=== PATIENT | female | born 1975 | race Caucasian/White ===

== ENCOUNTER 2017-08-23 17:59 | Inpatient (IN) | payer MEDICARE ==
[2017-08-23] MEDS: ALBUTEROL SULFATE 0.083% NEB 2.5 MG/3 ML AMPUL NEB SCH ×2 (18:08→18:44)
--- NOTE | 2017-08-23 18:30 | RADIOLOGY REPORT (SQ) ---
EXAM DESCRIPTION: CHEST SINGLE VIEW COMPLETED DATE/TIME: 08/23/2017 6:15 pm REASON FOR STUDY: bed 17 db COMPARISON: 02/09/2013 EXAM PARAMETERS: NUMBER OF VIEWS: One view. TECHNIQUE: Single frontal radiographic view of the chest acquired. RADIATION DOSE: NA LIMITATIONS: None. FINDINGS: LUNGS AND PLEURA: No acute opacities, masses or pneumothorax. No pleural effusion. MEDIASTINUM AND HILAR STRUCTURES: Stable. HEART AND VASCULAR STRUCTURES: Stable. BONES: No acute findings. HARDWARE: None in the chest. OTHER: No other significant finding. IMPRESSION: NO ACUTE RADIOGRAPHIC FINDING IN THE CHEST. TECHNICAL DOCUMENTATION: JOB ID: [id number] [id number] 2010 [employer]- All Rights Reserved Reading location - IP/workstation name: [email or web address]
[2017-08-23] MEDS ORDERED: IPRATROPIUM/ALBUTEROL 0.5-2.5 MG/3 ML AMPUL NEB ONE (18:34)
[2017-08-23] MEDS: MAGNESIUM SULFATE/D5W 1 GM/100 ML RTUPB IV SCH ×2 (18:43→19:24)
--- NOTE | 2017-08-23 18:50 | ER Document Report ---
ED General - General Stated Complaint: DIFFICULTY BREATHING Time Seen by Provider: 08/23/17 18:22 Mode of Arrival: Ambulatory Information source: Patient Notes: 42-year-old female history of asthma who was intubated for years ago presents with complaints of difficulty breathing over the past 2 days. Patient denies any fevers or chills denies any productivity to cough, notes she is wheezing - HPI Onset: Yesterday Onset/Duration: Persistent Quality of pain: Achy Severity: Mild Pain Level: 1 Associated symptoms: Nonproductive cough, Shortness of breath Exacerbated by: Walking, Coughing Relieved by: Denies Similar symptoms previously: Yes Recently seen / treated by doctor: No - Related Data Allergies/Adverse Reactions: Penicillins Allergy (Severe, Verified 08/23/17 19:43) throat swells hydrocodone bitartrate [From Vicodin] Adverse Reaction (Intermediate, Verified 08/23/17 19:43) agitation Past Medical History - Social History Smoking Status: Current Every Day Smoker Cigarette use (# per day): Yes Chew tobacco use (# tins/day): No Smoking Education Provided: Yes Family History: Reviewed & Not Pertinent - Past Medical History Cardiac Medical History: Reports: Hx Hypertension Pulmonary Medical History: Reports: Hx Asthma, Hx COPD Musculoskeletal Medical History: Reports Hx Arthritis - Immunizations Hx Diphtheria, Pertussis, Tetanus Vaccination: Yes Hx Pneumococcal Vaccination: 02/11/13 Review of Systems - Review of Systems Notes: REVIEW OF SYSTEMS: CONSTITUTIONAL : Denies fever, chills, or sweats. Denies recent illness. EENT: Denies eye, ear, throat, or mouth pain or symptoms. Denies nasal or sinus congestion or discharge. Denies throat, tongue, or mouth swelling or difficulty swallowing. CARDIOVASCULAR: Denies chest pain. Denies palpitations or racing or irregular heart beat. Denies ankle edema. RESPIRATORY: Admits to cough shortness of breath GASTROINTESTINAL: Denies abdominal pain or distention. Denies nausea, vomiting , or diarrhea. Denies blood in vomitus, stools, or per rectum. Denies black, tarry stools. Denies constipation. GENITOURINARY: Denies difficulty urinating, painful urination, burning, frequency, blood in urine, or discharge. FEMALE GENITOURINARY: Denies vaginal bleeding, heavy or abnormal periods, irregular periods. Denies vaginal discharge or odor. MUSCULOSKELETAL: Denies back or neck pain or stiffness. Denies joint pain or swelling. SKIN: Denies rash, lesions or sores. HEMATOLOGIC : Denies easy bruising or bleeding. LYMPHATIC: Denies swollen, enlarged glands. NEUROLOGICAL: Denies confusion or altered mental status. Denies passing out or loss of consciousness. Denies dizziness or lightheadedness. Denies headache. Denies weakness or paralysis or loss of use of either side. Denies problems with gait or speech. Denies sensory loss, numbness, or tingling. Denies seizures. PSYCHIATRIC: Denies anxiety or stress. Denies depression, suicidal ideation, or homicidal ideation. ALL OTHER SYSTEMS REVIEWED AND NEGATIVE. PHYSICAL EXAMINATION: GENERAL: Well-appearing, well-nourished and in moderate respiratory distress. HEAD: Atraumatic, normocephalic. EYES: Pupils equal round and reactive to light, extraocular movements intact, conjunctiva are normal. ENT: Nares patent, oropharynx clear without exudates. Moist mucous membranes. NECK: Normal range of motion, supple without lymphadenopathy LUNGS: Inspiratory expiratory wheezing noted all throughout patient is on 3 L nasal cannula satting 91% HEART: Regular rate and rhythm without murmurs ABDOMEN: Soft, nontender, nondistended abdomen. No guarding, no rebound. No masses appreciated. Female : deferred Musculoskeletal: Normal range of motion, no pitting or edema. No cyanosis. NEUROLOGICAL: Cranial nerves grossly intact. Normal speech, normal gait. Normal sensory, motor exams PSYCH: Normal mood, normal affect. SKIN: Warm, Dry, normal turgor, no rashes or lesions noted. Dictation was performed using [employer] voice recognition software Physical Exam - Vital signs Vitals: Temp Pulse Ox 97.5 F 92 08/23/17 18:03 08/23/17 18:03 Course - Re-evaluation Re-evalutation: 08/23/17 18:49 Patient is currently satting 91% on 3 L nasal cannula after DuoNeb, she further duo nebs and magnesium have been immediately ordered upon my arrival, I have high suspicion the patient will be admitted 08/23/17 20:21 Patient after multiple breathing treatments and magnesium is still satting 91% on 3 L nasal cannula, patient will be admitted to the hospitalist service - Vital Signs Vital signs: Temp Pulse Resp BP Pulse Ox 97.5 F 29 H 176/91 H 93 08/23/17 18:03 08/23/17 19:01 08/23/17 19:01 08/23/17 19:01 - Laboratory Result Diagrams: 08/23/17 19:09 08/23/17 19:09 Laboratory results interpreted by me: 08/23/17 08/23/17 08/23/17 19:09 19:09 19:09 WBC 11.8 H RBC 5.56 H MCV 70 L MCH 21.5 L MCHC 30.8 L RDW 19.3 H Seg Neutrophils % 83.2 H Lymphocytes % 12.1 L Absolute Neutrophils 9.8 H VBG HCO3 32.8 H Carbon Dioxide 32 H Glucose 115 H Total Protein 8.3 H - Diagnostic Test Radiology reviewed: Image reviewed Discharge - Discharge Clinical Impression: Hypoxemia Asthma exacerbation Qualifiers: Asthma severity: mild Asthma persistence: unspecified Qualified Code(s): J45.901 - Unspecified asthma with (acute) exacerbation Condition: Stable Disposition: ADMITTED INPATIENT Admitting Provider: Hospitalist Unit Admitted: IMCU Referrals: CLAUDIA DASH MD [Primary Care Provider] - Follow up as needed
[2017-08-23] MEDS ORDERED: ALBUTEROL SULFATE 0.083% NEB 2.5 MG/3 ML AMPUL NEB ONE (19:19)
[2017-08-23 19:24] LABS: ABSOLUTE BASOPHILS # (AUTO) 0.1 10^3/uL (0.0-0.2); ABSOLUTE EOSINOPHILS # (AUTO) 0.1 10^3/uL (0.0-0.6); ABSOLUTE LYMPHOCYTES (AUTO) 1.4 10^3/uL (0.5-4.7); ABSOLUTE MONOCYTES (AUTO) 0.4 10^3/uL (0.1-1.4); ABSOLUTE NEUT (AUTO) 9.8 10^3/uL (1.7-8.2); BASOPHILS % (AUTO) 0.6 % (0-2); EOSINOPHILS % (AUTO) 1.1 % (0-6); HEMATOCRIT 38.8 % (36.0-47.0); LYMPHOCYTES % (AUTO) 12.1 % (13-45); MEAN CORPUSCULAR HEMOGLOBIN 21.5 pg (27.0-33.4); MEAN CORPUSCULAR HGB CONC 30.8 g/dL (32.0-36.0); MEAN CORPUSCULAR VOLUME 70 fl (80-97); PLATELET COUNT 427 10^3/uL (150-450); RED BLOOD COUNT 5.56 10^6/uL (3.72-5.28); RED CELL DISTRIBUTION WIDTH 19.3 % (11.5-14.0); SEGMENTED NEUTROPHILS % (AUTO) 83.2 % (42-78); TOTAL CELLS COUNTED % (AUTO) 100 %; WHITE BLOOD COUNT 11.8 10^3/uL (4.0-10.5)
[2017-08-23 19:25] LABS: VENOUS BLOOD BASE EXCESS 5.6 mmol/L; VENOUS BLOOD HCO3 32.8 mmol/L (20-32); VENOUS BLOOD PCO2 60.2 mmHg (35-63); VENOUS BLOOD PH 7.35 (7.30-7.42)
[2017-08-23 19:46] LABS: ALANINE AMINOTRANSFERASE 21 U/L (9-52); ALBUMIN 4.2 g/dL (3.5-5.0); ALKALINE PHOSPHATASE 77 U/L (38-126); ANION GAP 10 (5-19); ASPARTATE AMINO TRANSFERASE 23 U/L (14-36); BILIRUBIN,DIRECT 0.4 mg/dL (0.0-0.4); BILIRUBIN,TOTAL 0.7 mg/dL (0.2-1.3); BLOOD UREA NITROGEN 8 mg/dL (7-20); CALCIUM 9.2 mg/dL (8.4-10.2); CARBON DIOXIDE 32 mmol/L (22-30); CHLORIDE 100 mmol/L (98-107); CREATINE KINASE 122 U/L (30-135); GLUCOSE 115 mg/dL (75-110); POTASSIUM 4.3 mmol/L (3.6-5.0); SODIUM 142.3 mmol/L (137-145); TOTAL PROTEIN 8.3 g/dL (6.3-8.2)
[2017-08-23 19:54] LABS: CREATINE KINASE MB 0.57 ng/mL (<4.55); NT PRO BNP 51 pg/mL (<125)
[2017-08-23 19:56] LABS: TROPONIN I < 0.012 ng/mL
[2017-08-23] MEDS ORDERED: LEVOFLOXACIN 500 MG/D5W RTU 500 MG/100 ML RTUPB IV ONE (20:11)
[2017-08-23] MEDS ORDERED: METHYLPREDNISOLONE INJ 125 MG/2 ML SDV IV ONE (20:11)
[2017-08-23 21:40] LABS: APPEARANCE,URINE CLEAR; BILIRUBIN,URINE NEGATIVE (NEGATIVE); COLOR,URINE YELLOW; GLUCOSE, URINE NEGATIVE (NEGATIVE); KETONES,URINE NEGATIVE (NEGATIVE); LEUKOCYTE ESTERASE,URINE NEGATIVE (NEGATIVE); NITRITE,URINE NEGATIVE (NEGATIVE); PROTEIN,URINE NEGATIVE (NEGATIVE); URINE SPECIFIC GRAVITY 1.005; UROBILINOGEN,URINE NEGATIVE mg/dL (<2.0)
--- NOTE | 2017-08-23 23:05 | EKG REPORT ---
SEVERITY:- NORMAL ECG - SINUS RHYTHM : Confirmed by: Beka Herrera 23-Aug-2017 23:03:44
[2017-08-23] MEDS ORDERED: MAGNESIUM HYDROXIDE SUSP 30 ML UDCUP PO PRN (23:36)
[2017-08-23] MEDS ORDERED: ONDANSETRON HCL INJ/PF 4 MG/2 ML SDV IV PRN (23:36)
[2017-08-24] MEDS: NORMAL SALINE 1000 ML 1,000 ML IV PRN ×2 (00:26→11:01)
[2017-08-24] MEDS: ACETAMINOPHEN 325 MG TABLET PO PRN (04:16)
[2017-08-24] MEDS: ALBUTEROL SULFATE 0.083% NEB 2.5 MG/3 ML AMPUL NEB PRN (04:24)
--- NOTE | 2017-08-24 04:50 | PDOC H&P ---
History of Present Illness Admission Date/PCP: 08/23/17 20:28 CLAUDIA DASH MD Patient complains of: Shortness of breath, cough and wheezing History of Present Illness: DONTE DAMON is a 42 year old female with history of multiple medical problems develop her menstrual blood present in the emergency room with acute onset of dyspnea with associated dry cough and wheezing which have been significantly worsening over the last couple of days with tactile fever and chills. She admits to nausea without vomiting. She has been having mild headache and lightheadedness as well as rhinorrhea nasal congestion and sore throat. No abdominal pain or dysuria oliguria hematuria or flank pain. When she came to the ER EKG showed normal sinus rhythm with a rate of 92. She was desaturating We will pulse oximetry of 88% on room air. On 3 L of O2 by nasal cannula she was up to 92%. She was given 3 DuoNeb's as well as 2 g of IV magnesium sulfate as well as IV Levaquin and was still feeling tight. Labs revealed mild leukocytosis are otherwise unremarkable. The patient will be admitted to a medically monitored bed for further evaluation and management. Past Medical History Cardiac Medical History: Reports: Hypertension Pulmonary Medical History: Reports: Asthma, Chronic Obstructive Pulmonary Disease (COPD) - This was previously reported however the patient denied Musculoskeltal Medical History: Reports: Arthritis Psychiatric Medical History: Denies: Depression Past Surgical History Past Surgical History: Reports: None Social History Smoking Status: Current Every Day Smoker - Half-pack of cigarettes per day and has been smoking for a long time. Cigarettes Packs Per Day: 1 Pipes Per Day: 22 Last Time Smoked: 08/21/17 Frequency of Alcohol Use: None Hx Recreational Drug Use: No Drugs: None Hx Prescription Drug Abuse: No Family History Family History: CVA - In her father Parental Family History Reviewed: Yes Children Family History Reviewed: Yes Sibling(s) Family History Reviewed.: Yes Medication/Allergy Home Medications: Albuterol Sulfate [Ventolin Hfa] 2 puff IH Q4HP PRN 08/23/17 Allergies/Adverse Reactions: Penicillins Allergy (Severe, Verified 08/23/17 19:43) throat swells hydrocodone bitartrate [From Vicodin] Adverse Reaction (Intermediate, Verified 08/23/17 19:43) agitation Review of Systems Review of Systems: As per history of present illness. All pertinent systems were reviewed above. Constitutional, HEENT, cardiovascular, respiratory, GI, , musculoskeletal, neuro, psychiatric, endocrine, integumentary and hematologic systems were reviewed and are otherwise negative/unremarkable except for positive findings mentioned above in the HPI. Physical Exam Vital Signs: Temp Pulse Resp BP Pulse Ox 98.6 F 88 20 131/77 H 98 08/23/17 23:47 08/24/17 02:00 08/23/17 23:47 08/23/17 23:47 08/24/17 00:55 Intake & Output 08/22/17 08/23/17 08/24/17 06:59 06:59 06:59 Intake Total 81 Balance 81 Weight 189.1 kg Exam: Generally: Pleasant middle-aged obese -[place] female in mild respiratory distress with conversational dyspnea. Vital signs-as listed Head - atraumatic, normocephalic. Pupils - equal, round and reactive to light and accommodation. Extraocular movements are intact. No scleral icterus. Oropharynx - moist mucous membranes and tongue. No pharyngeal erythema or exudate. Neck - supple. No JVD. Carotid pulses 2+ bilaterally. No carotid bruits. No palpable thyromegaly or lymphadenopathy. Cardiovascular - regular rate and rhythm. Normal S1 and S2. No murmurs, gallops or rubs. Lungs -diffuse expiratory wheezes with tight expiratory airflow and harsh vesicular breathing. Abdomen - soft and nontender. Positive bowel sounds. No palpable organomegaly or masses. Extremities - no pitting edema, clubbing or cyanosis. Neuro - grossly non-focal. Skin - no rashes. Breast, pelvic and rectal - deferred Results Laboratory Results: 08/23/17 21:00 Urine Color YELLOW Urine Appearance CLEAR Urine pH 7.[address] [place] 1.005 Urine Protein NEGATIVE Urine Glucose (UA) NEGATIVE Urine Ketones NEGATIVE Urine Blood NEGATIVE Urine Nitrite NEGATIVE Ur Leukocyte Esterase NEGATIVE Urine WBC (Auto) 1 Impressions: Chest X-Ray 08/23/17 18:03 IMPRESSION: NO ACUTE RADIOGRAPHIC FINDING IN THE CHEST. Assessment & Plan - Diagnosis (1) Asthma exacerbation Qualifiers: Asthma severity: moderate Asthma persistence: unspecified Qualified Code( s): J45.901 - Unspecified asthma with (acute) exacerbation Is this a current diagnosis for this admission?: Yes Plan: The patient will be admitted to a medically monitored bed and will be placed on IV steroid therapy with IV Solu-Medrol as well as nebulized bronchodilator therapy with duonebs q.i.d. and q.4 hours p.r.n., mucolytic therapy with Mucinex and antibiotic therapy with IV Rocephin and Zithromax, given her history of ongoing tobacco abuse and the possibility of associated COPD and underlying acute bronchitis. Sputum Gram stain culture and sensitivity will be obtained. O2 protocol will be followed. (2) Hypoxemia Is this a current diagnosis for this admission?: Yes Plan: O2 protocol will be followed. Management as above. (3) Tobacco abuse Is this a current diagnosis for this admission?: Yes Plan: I counseled the patient for smoking cessation and the patient will receive further counseling here. (4) DVT prophylaxis Is this a current diagnosis for this admission?: Yes Plan: Subcutaneous Lovenox - Plan Summary Plan Summary: The plan of care was discussed in details with the patient. I answered all questions. The patient agreed to proceed with the above-mentioned plan. The patient is presumably full code. This note was created by [employer] software and may contain typo errors that may have not been proofread.
[2017-08-24] MEDS ORDERED: AZITHROMYCIN INJ 500 MG VIAL IV SCH (05:00)
[2017-08-24] MEDS ORDERED: METHYLPREDNISOLONE INJ 125 MG/2 ML SDV IV SCH ×2 (06:00→07:00)
[2017-08-24] MEDS ORDERED: AZITHROMYCIN 500 MG in DEXTROSE 5%-WATER 250 ML IV ONE (06:00)
[2017-08-24] MEDS ORDERED: AZITHROMYCIN INJ 500 MG VIAL IV ONE (06:00)
[2017-08-24 06:22] LABS: HEMATOCRIT 39.6 % (36.0-47.0); HEMOGLOBIN 12.2 g/dL (12.0-15.5); MEAN CORPUSCULAR HEMOGLOBIN 21.9 pg (27.0-33.4); MEAN CORPUSCULAR HGB CONC 30.7 g/dL (32.0-36.0); MEAN CORPUSCULAR VOLUME 71 fl (80-97); PLATELET COUNT 404 10^3/uL (150-450); RED BLOOD COUNT 5.56 10^6/uL (3.72-5.28); RED CELL DISTRIBUTION WIDTH 18.9 % (11.5-14.0); WHITE BLOOD COUNT 11.8 10^3/uL (4.0-10.5)
[2017-08-24 06:36] LABS: ANION GAP 11 (5-19); BLOOD UREA NITROGEN 9 mg/dL (7-20); CARBON DIOXIDE 29 mmol/L (22-30); CHLORIDE 104 mmol/L (98-107); GLUCOSE 142 mg/dL (75-110); SODIUM 144.4 mmol/L (137-145)
[2017-08-24 06:52] LABS: POTASSIUM 5.3 mmol/L (3.6-5.0)
[2017-08-24] MEDS: LANSOPRAZOLE 30 MG TAB.RAP.DR PO SCH (07:00)
[2017-08-24 07:02] LABS: ABSOLUTE LYMPHOCYTES# (MANUAL) 0.4 10^3/uL (0.5-4.7); ABSOLUTE NEUTROPHILS# (MANUAL) 11.3 10^3/uL (1.7-8.2); BAND NEUTROPHILS % (MANUAL) 1 % (3-5); BASOPHILS % (MANUAL) 1 % (0-2); EOSINOPHILS % (MANUAL) 0 % (0-6); LYMPHOCYTES % (MANUAL) 3 % (13-45); MONOCYTES % (MANUAL) 0 % (3-13); SEGMENTED NEUTROPHILS % (MAN) 95 % (42-78); TOTAL CELLS COUNTED 100
[2017-08-24 07:12] LABS: HYPOCHROMASIA 1+; OVALOCYTES SLIGHT; PLATELET COMMENT ADEQUATE; POIKILOCYTOSIS SLIGHT; POLYCHROMASIA SLIGHT; TOXIC GRANULATION SLIGHT; TOXIC VACUOLATION PRESENT
[2017-08-24] MEDS: IPRATROPIUM/ALBUTEROL 0.5-2.5 MG/3 ML AMPUL NEB SCH ×4 (08:39→20:17)
[2017-08-24] MEDS ORDERED: CEFTRIAXONE SODIUM 1,000 MG in DEXTROSE 5%-WATER 100 ML IV SCH (10:00)
[2017-08-24] MEDS: ENOXAPARIN SODIUM INJ 40 MG/0.4 ML DISP.SYRIN SUBCUT SCH (10:59)
[2017-08-24] MEDS: CEFTRIAXONE SODIUM 1,000 MG in DEXTROSE 5%-WATER 50 ML IV SCH (11:00)
[2017-08-24] MEDS ORDERED: METHYLPREDNISOLONE INJ 125 MG/2 ML SDV IV ONE (11:30)
[2017-08-24 15:05] LABS: ANION GAP 11 (5-19); BLOOD UREA NITROGEN 11 mg/dL (7-20); CALCIUM 8.9 mg/dL (8.4-10.2); CARBON DIOXIDE 29 mmol/L (22-30); CHLORIDE 103 mmol/L (98-107); GLUCOSE 132 mg/dL (75-110); POTASSIUM 5.2 mmol/L (3.6-5.0); SODIUM 142.5 mmol/L (137-145)
[2017-08-24] MEDS: METHYLPREDNISOLONE INJ 125 MG/2 ML SDV IV SCH (17:44)
--- NOTE | 2017-08-24 18:47 | PDOC PROGRESS REPORT ---
Subjective Progress Note for:: 08/24/17 Subjective:: Patient is breathing better than she was on admission. She thinks her wheezing has improved. No fever or chills. No sputum production. Dry cough. No abdominal pain nausea or vomiting. Her appetite is fair. No constipation diarrhea or dysuria. Reason For Visit: ACUTE ASTHMA EXACERBATION Physical Exam Vital Signs: Temp Pulse Resp BP Pulse Ox 98.6 F 83 18 135/75 H 90 L 08/24/17 04:14 08/24/17 13:16 08/24/17 13:16 08/24/17 04:14 08/24/17 13:16 Intake & Output 08/23/17 08/24/17 08/25/17 06:59 06:59 06:59 Intake Total 681 Balance 681 Weight 191.7 kg 191.7 kg General appearance: PRESENT: no acute distress, cooperative, morbidly obese Head exam: PRESENT: atraumatic, normocephalic Eye exam: PRESENT: EOMI. ABSENT: conjunctival injection, scleral icterus Mouth exam: PRESENT: moist, neck supple, tongue midline Neck exam: ABSENT: tenderness, tracheostomy Respiratory exam: PRESENT: decreased breath sounds, prolonged expiratory phas, wheezes. ABSENT: rales, rhonchi Cardiovascular exam: PRESENT: RRR. ABSENT: systolic murmur Pulses: ABSENT: normal radial pulses GI/Abdominal exam: PRESENT: normal bowel sounds, soft. ABSENT: distended, tenderness Rectal exam: PRESENT: deferred Extremities exam: PRESENT: pedal edema Neurological exam: PRESENT: awake, oriented to person, oriented to place, oriented to situation, CN II-XII grossly intact Psychiatric exam: PRESENT: appropriate affect. ABSENT: anxious Skin exam: PRESENT: dry, intact, warm Results Laboratory Results: 08/24/17 05:54 08/24/17 13:58 08/23/17 08/24/17 08/24/17 21:00 05:54 05:54 WBC 11.8 H RBC 5.56 H Hgb 12.2 Hct 39.6 MCV 71 L MCH 21.9 L MCHC 30.7 L RDW 18.9 H Plt Count 404 Seg Neutrophils % Not Reportable Lymphocytes % Not Reportable Monocytes % Not Reportable Eosinophils % Not Reportable Basophils % Not Reportable Absolute Neutrophils Not Reportable Absolute Lymphocytes Not Reportable Absolute Monocytes Not Reportable Absolute Eosinophils Not Reportable Absolute Basophils Not Reportable Sodium 144.4 Potassium 5.3 H D Chloride 104 Carbon Dioxide 29 Anion Gap 11 BUN 9 Creatinine 0.78 Est GFR ( Amer) > 60 Est GFR (Non-Af Amer) > 60 Glucose 142 H Calcium 9.0 Urine Color YELLOW Urine Appearance CLEAR Urine pH 7.0 Ur Specific [place] 1.005 Urine Protein NEGATIVE Urine Glucose (UA) NEGATIVE Urine Ketones NEGATIVE Urine Blood NEGATIVE Urine Nitrite NEGATIVE Ur Leukocyte Esterase NEGATIVE Urine WBC (Auto) 1 08/24/17 13:58 WBC RBC Hgb Hct MCV MCH MCHC RDW Plt Count Seg Neutrophils % Lymphocytes % Monocytes % Eosinophils % Basophils % Absolute Neutrophils Absolute Lymphocytes Absolute Monocytes Absolute Eosinophils Absolute Basophils Sodium 142.5 Potassium 5.2 H Chloride 103 Carbon Dioxide 29 Anion Gap 11 BUN 11 Creatinine 0.72 Est GFR ( Amer) > 60 Est GFR (Non-Af Amer) > 60 Glucose 132 H Calcium 8.9 Urine Color Urine Appearance Urine pH Ur Specific [place] Urine Protein Urine Glucose (UA) Urine Ketones Urine Blood Urine Nitrite Ur Leukocyte Esterase Urine WBC (Auto) Impressions: Chest X-Ray 08/23/17 18:03 IMPRESSION: NO ACUTE RADIOGRAPHIC FINDING IN THE CHEST. Assessment & Plan - Diagnosis (1) Asthma exacerbation Qualifiers: Asthma severity: moderate Asthma persistence: unspecified Qualified Code( s): J45.901 - Unspecified asthma with (acute) exacerbation Is this a current diagnosis for this admission?: Yes Plan: Patient is improving clinically. She will continue on bronchodilators, antibiotics, steroids as ordered by admitting physician. I have ordered Mucinex. Sputum culture pending. (2) DVT prophylaxis Is this a current diagnosis for this admission?: Yes Plan: Continue on Lovenox as ordered by admitting physician (3) Hypoxemia Is this a current diagnosis for this admission?: Yes Plan: Acute hypoxemic respiratory failure, continue nasal cannula oxygen and wean as we are able. (4) Tobacco abuse Is this a current diagnosis for this admission?: Yes Plan: Once patient feels better we will continue tobacco cessation counseling. - Time Time Spent with patient: 25-34 minutes Anticipated discharge: Home - Inpatient Certification Based on my medical assessment, after consideration of the patient's comorbidities, presenting symptoms, or acuity I expect that the services needed warrant INPATIENT care.: Yes I certify that my determination is in accordance with my understanding of Medicare's requirements for reasonable and necessary INPATIENT services [42 CFR 412.3e].: Yes Medical Necessity: Need Close Monitoring Due to Risk of Patient Decompensation, Need for Nebulizer Therapy and Monitoring of Response
[2017-08-24 19:59] LABS: ANION GAP 12 (5-19); BLOOD UREA NITROGEN 14 mg/dL (7-20); CARBON DIOXIDE 29 mmol/L (22-30); CHLORIDE 101 mmol/L (98-107); GLUCOSE 170 mg/dL (75-110); POTASSIUM 5.1 mmol/L (3.6-5.0); SODIUM 141.8 mmol/L (137-145)
[2017-08-24] MEDS: GUAIFENESIN 600 MG TABLET.SA PO SCH (22:17)
[2017-08-25] MEDS: METHYLPREDNISOLONE INJ 125 MG/2 ML SDV IV SCH ×2 (03:27→21:57)
[2017-08-25] MEDS: LANSOPRAZOLE 30 MG TAB.RAP.DR PO SCH (05:09)
[2017-08-25] MEDS: ACETAMINOPHEN 325 MG TABLET PO PRN (05:09)
[2017-08-25 06:18] LABS: ABSOLUTE BASOPHILS # (AUTO) 0.1 10^3/uL (0.0-0.2); ABSOLUTE LYMPHOCYTES (AUTO) 1.1 10^3/uL (0.5-4.7); ABSOLUTE MONOCYTES (AUTO) 0.4 10^3/uL (0.1-1.4); ABSOLUTE NEUT (AUTO) 18.1 10^3/uL (1.7-8.2); BASOPHILS % (AUTO) 0.4 % (0-2); HEMATOCRIT 37.2 % (36.0-47.0); HEMOGLOBIN 11.3 g/dL (12.0-15.5); LYMPHOCYTES % (AUTO) 5.5 % (13-45); MEAN CORPUSCULAR HEMOGLOBIN 21.7 pg (27.0-33.4); MEAN CORPUSCULAR HGB CONC 30.4 g/dL (32.0-36.0); MEAN CORPUSCULAR VOLUME 71 fl (80-97); MONOCYTES % (AUTO) 1.8 % (3-13); PLATELET COUNT 445 10^3/uL (150-450); RED BLOOD COUNT 5.22 10^6/uL (3.72-5.28); RED CELL DISTRIBUTION WIDTH 19.1 % (11.5-14.0); SEGMENTED NEUTROPHILS % (AUTO) 92.3 % (42-78); TOTAL CELLS COUNTED % (AUTO) 100 %; WHITE BLOOD COUNT 19.6 10^3/uL (4.0-10.5)
[2017-08-25 06:37] LABS: ANION GAP 11 (5-19); BLOOD UREA NITROGEN 15 mg/dL (7-20); CALCIUM 8.8 mg/dL (8.4-10.2); CARBON DIOXIDE 30 mmol/L (22-30); CHLORIDE 102 mmol/L (98-107); GLUCOSE 134 mg/dL (75-110); POTASSIUM 5.2 mmol/L (3.6-5.0); SODIUM 142.5 mmol/L (137-145)
[2017-08-25] MEDS: IPRATROPIUM/ALBUTEROL 0.5-2.5 MG/3 ML AMPUL NEB SCH ×4 (08:22→20:49)
[2017-08-25] MEDS: GUAIFENESIN 600 MG TABLET.SA PO SCH ×2 (11:53→21:57)
[2017-08-25] MEDS: ENOXAPARIN SODIUM INJ 40 MG/0.4 ML DISP.SYRIN SUBCUT SCH (11:54)
[2017-08-25] MEDS: CEFTRIAXONE SODIUM 1,000 MG in DEXTROSE 5%-WATER 50 ML IV SCH (11:55)
[2017-08-25] MEDS: AZITHROMYCIN 500 MG in DEXTROSE 5%-WATER 250 ML IV SCH (11:56)
[2017-08-25] MEDS ORDERED: NYSTATIN CREAM 15 GM TP ONE (12:00)
[2017-08-25] MEDS ORDERED: METHYLPREDNISOLONE INJ 125 MG/2 ML SDV IV ONE (12:30)
--- NOTE | 2017-08-25 18:10 | PDOC PROGRESS REPORT ---
Subjective Progress Note for:: 08/25/17 Subjective:: Patient states she is feeling significantly better. She is still having tightness in her chest with deep breathing. Overall she is more comfortable. She is able to get up to the restroom. Her appetite is improving. No fever or chills. No sputum production. She has a dry cough. No acute pain. Reason For Visit: ACUTE ASTHMA EXACERBATION Physical Exam Vital Signs: Temp Pulse Resp BP Pulse Ox 98.3 F 86 16 133/68 H 97 08/25/17 15:28 08/25/17 16:10 08/25/17 16:10 08/25/17 15:28 08/25/17 16:10 Intake & Output 08/24/17 08/25/17 08/26/17 06:59 06:59 06:59 Intake Total 681 620 355 Balance 681 620 355 Weight 191.7 kg 192.9 kg General appearance: PRESENT: no acute distress, morbidly obese Eye exam: PRESENT: EOMI. ABSENT: conjunctival injection, scleral icterus Mouth exam: PRESENT: moist, neck supple, tongue midline Respiratory exam: PRESENT: decreased breath sounds, wheezes. ABSENT: rales, rhonchi, tachypnea, unlabored Cardiovascular exam: PRESENT: RRR. ABSENT: systolic murmur Pulses: PRESENT: normal radial pulses GI/Abdominal exam: PRESENT: normal bowel sounds, soft. ABSENT: distended, guarding, tenderness Rectal exam: PRESENT: deferred Gentrourinary exam: PRESENT: other - She is having some urinary incontinence and is wearing an adult brief.. ABSENT: indwelling catheter Extremities exam: PRESENT: pedal edema Neurological exam: PRESENT: alert, awake, oriented to person, oriented to place , oriented to situation, CN II-XII grossly intact Psychiatric exam: PRESENT: appropriate affect. ABSENT: anxious Skin exam: PRESENT: intact, warm, other - Pannus and skin folds. Results Laboratory Results: 08/25/17 05:48 08/25/17 05:48 08/24/17 08/25/17 08/25/17 19:09 05:48 05:48 WBC 19.6 H RBC 5.22 Hgb 11.3 L Hct 37.2 MCV 71 L MCH 21.7 L MCHC 30.4 L RDW 19.1 H Plt Count 445 Seg Neutrophils % 92.3 H Lymphocytes % 5.5 L Monocytes % 1.8 L Eosinophils % 0.0 Basophils % 0.4 Absolute Neutrophils 18.1 H Absolute Lymphocytes 1.1 Absolute Monocytes 0.4 Absolute Eosinophils 0.0 Absolute Basophils 0.1 Sodium 141.8 142.5 Potassium 5.1 H 5.2 H Chloride 101 102 Carbon Dioxide 29 30 Anion Gap 12 11 BUN 14 15 Creatinine 0.90 0.81 Est GFR ( Amer) > 60 > 60 Est GFR (Non-Af Amer) > 60 > 60 Glucose 170 H 134 H Calcium 9.0 8.8 Impressions: Chest X-Ray 08/23/17 18:03 IMPRESSION: NO ACUTE RADIOGRAPHIC FINDING IN THE CHEST. Assessment & Plan - Diagnosis (1) Asthma exacerbation Qualifiers: Asthma severity: moderate Asthma persistence: unspecified Qualified Code( s): J45.901 - Unspecified asthma with (acute) exacerbation Is this a current diagnosis for this admission?: Yes Plan: Overall improved. Continue her IV methylprednisolone but decrease the dose from 60 mg every 8 hours to 60 mg IV every 12 hours. We will continue bronchodilators and antibiotics. (2) DVT prophylaxis Is this a current diagnosis for this admission?: Yes Plan: Continue Lovenox 40 mg subcu daily, no complications. (3) Hypoxemia Is this a current diagnosis for this admission?: Yes Plan: Acute hypoxemic respiratory failure-vision is improving and is now satting in the mid 90s on 4 L. We will continue to titrate oxygen down as we are able. This is related to asthma exacerbation and possible pneumonia versus bronchitis. (4) Tobacco abuse Is this a current diagnosis for this admission?: Yes Plan: We talked about tobacco cessation importance. She is pre-contemplative. (5) Intertriginous dermatitis associated with moisture Is this a current diagnosis for this admission?: Yes Plan: Is morbidly obese. She has evidence of intertriginous candidiasis in her skin folds. Statin cream has been ordered. - Time Time Spent with patient: 15-24 minutes Medications reviewed and adjusted accordingly: Yes - Inpatient Certification Based on my medical assessment, after consideration of the patient's comorbidities, presenting symptoms, or acuity I expect that the services needed warrant INPATIENT care.: Yes I certify that my determination is in accordance with my understanding of Medicare's requirements for reasonable and necessary INPATIENT services [42 CFR 412.3e].: Yes Medical Necessity: Need for Nebulizer Therapy and Monitoring of Response, Need for IV Antibiotics
[2017-08-25] MEDS: NYSTATIN CREAM 15 GM TP SCH (19:31)
[2017-08-26 00:36] LABS: AMORPHOUS SEDIMENT,URINE TRACE /HPF; APPEARANCE,URINE CLEAR; BILIRUBIN,URINE NEGATIVE (NEGATIVE); COLOR,URINE YELLOW; GLUCOSE, URINE NEGATIVE (NEGATIVE); KETONES,URINE NEGATIVE (NEGATIVE); LEUKOCYTE ESTERASE,URINE NEGATIVE (NEGATIVE); NITRITE,URINE NEGATIVE (NEGATIVE); PROTEIN,URINE NEGATIVE (NEGATIVE); URINE SPECIFIC GRAVITY 1.014; UROBILINOGEN,URINE NEGATIVE mg/dL (<2.0)
[2017-08-26] MEDS: ALBUTEROL SULFATE 0.083% NEB 2.5 MG/3 ML AMPUL NEB PRN (00:59)
[2017-08-26] MEDS: LANSOPRAZOLE 30 MG TAB.RAP.DR PO SCH (05:53)
[2017-08-26 07:09] LABS: ABSOLUTE BASOPHILS # (AUTO) 0.1 10^3/uL (0.0-0.2); ABSOLUTE LYMPHOCYTES (AUTO) 1.5 10^3/uL (0.5-4.7); ABSOLUTE MONOCYTES (AUTO) 0.4 10^3/uL (0.1-1.4); BASOPHILS % (AUTO) 0.4 % (0-2); HEMOGLOBIN 11.1 g/dL (12.0-15.5); LYMPHOCYTES % (AUTO) 10.1 % (13-45); MEAN CORPUSCULAR HEMOGLOBIN 21.4 pg (27.0-33.4); MEAN CORPUSCULAR VOLUME 71 fl (80-97); MONOCYTES % (AUTO) 2.6 % (3-13); PLATELET COUNT 435 10^3/uL (150-450); RED BLOOD COUNT 5.19 10^6/uL (3.72-5.28); RED CELL DISTRIBUTION WIDTH 18.9 % (11.5-14.0); SEGMENTED NEUTROPHILS % (AUTO) 86.9 % (42-78); TOTAL CELLS COUNTED % (AUTO) 100 %
[2017-08-26 07:33] LABS: ANION GAP 11 (5-19); BLOOD UREA NITROGEN 21 mg/dL (7-20); CALCIUM 8.6 mg/dL (8.4-10.2); CARBON DIOXIDE 32 mmol/L (22-30); CHLORIDE 100 mmol/L (98-107); GLUCOSE 126 mg/dL (75-110); POTASSIUM 5.3 mmol/L (3.6-5.0); SODIUM 142.7 mmol/L (137-145)
[2017-08-26] MEDS: IPRATROPIUM/ALBUTEROL 0.5-2.5 MG/3 ML AMPUL NEB SCH ×4 (09:28→20:15)
[2017-08-26] MEDS: GUAIFENESIN 600 MG TABLET.SA PO SCH ×2 (10:04→23:11)
[2017-08-26] MEDS: ENOXAPARIN SODIUM INJ 40 MG/0.4 ML DISP.SYRIN SUBCUT SCH (10:04)
[2017-08-26] MEDS: METHYLPREDNISOLONE INJ 125 MG/2 ML SDV IV SCH ×2 (10:04→23:11)
[2017-08-26] MEDS: CEFTRIAXONE SODIUM 1,000 MG in DEXTROSE 5%-WATER 50 ML IV SCH (10:04)
[2017-08-26] MEDS: NYSTATIN CREAM 15 GM TP SCH ×2 (10:05→16:23)
[2017-08-26] MEDS: AZITHROMYCIN 500 MG in DEXTROSE 5%-WATER 250 ML IV SCH (11:11)
--- NOTE | 2017-08-26 16:55 | PDOC PROGRESS REPORT ---
Subjective Progress Note for:: 08/26/17 Subjective:: Patient is breathing more easily. Certainly not back to normal. Chest pain is described as a little bit of tightness with coughing and deep breathing. Still I am able to ambulate to the bathroom but does have dyspnea with that. Steroids and bronchodilators seem to be helping her symptoms. We discussed her obesity and she states that she is on a calorie restriction and exercise plan. She has lost 50 pounds over the past few months with a 1200-calorie daily diet. Reason For Visit: ACUTE ASTHMA EXACERBATION Physical Exam Vital Signs: Temp Pulse Resp BP Pulse Ox 98.7 F 88 18 141/65 H 91 L 08/26/17 15:17 08/26/17 15:17 08/26/17 15:17 08/26/17 15:17 08/26/17 15:17 Intake & Output 08/25/17 08/26/17 08/27/17 06:59 06:59 06:59 Intake Total 620 1599 354 Output Total 400 Balance 620 1199 354 Weight 192.9 kg 190.6 kg General appearance: PRESENT: no acute distress, cooperative, morbidly obese Head exam: PRESENT: atraumatic, normocephalic Eye exam: PRESENT: EOMI. ABSENT: conjunctival injection, scleral icterus Mouth exam: PRESENT: moist, neck supple, tongue midline Respiratory exam: PRESENT: decreased breath sounds, unlabored, wheezes. ABSENT : rales, rhonchi Cardiovascular exam: PRESENT: RRR. ABSENT: systolic murmur Pulses: PRESENT: normal radial pulses GI/Abdominal exam: PRESENT: normal bowel sounds, soft. ABSENT: distended, firm , guarding, tenderness Rectal exam: PRESENT: deferred Extremities exam: PRESENT: pedal edema Neurological exam: PRESENT: alert, awake, oriented to person, oriented to place , oriented to situation, CN II-XII grossly intact Psychiatric exam: PRESENT: appropriate affect. ABSENT: anxious Skin exam: PRESENT: intact, warm, other - Moist and skin folds Results Laboratory Results: 08/26/17 06:54 08/26/17 06:54 08/26/17 08/26/17 08/26/17 00:14 06:54 06:54 WBC 15.0 H RBC 5.19 Hgb 11.1 L Hct 37.0 MCV 71 L MCH 21.4 L MCHC 30.0 L RDW 18.9 H Plt Count 435 Seg Neutrophils % 86.9 H Lymphocytes % 10.1 L Monocytes % 2.6 L Eosinophils % 0.0 Basophils % 0.4 Absolute Neutrophils 13.0 H Absolute Lymphocytes 1.5 Absolute Monocytes 0.4 Absolute Eosinophils 0.0 Absolute Basophils 0.1 Sodium 142.7 Potassium 5.3 H Chloride 100 Carbon Dioxide 32 H Anion Gap 11 BUN 21 H Creatinine 0.85 Est GFR ( Amer) > 60 Est GFR (Non-Af Amer) > 60 Glucose 126 H Calcium 8.6 Urine Color YELLOW Urine Appearance CLEAR Urine pH 6.0 Ur Specific [place] 1.014 Urine Protein NEGATIVE Urine Glucose (UA) NEGATIVE Urine Ketones NEGATIVE Urine Blood NEGATIVE Urine Nitrite NEGATIVE Ur Leukocyte Esterase NEGATIVE Urine WBC (Auto) 1 08/24/17 20:35 Sputum Gram Stain - Final 08/24/17 20:35 Sputum Sputum Culture - Final NORMAL TAMERA Impressions: Chest X-Ray 08/23/17 18:03 IMPRESSION: NO ACUTE RADIOGRAPHIC FINDING IN THE CHEST. Assessment & Plan - Diagnosis (1) Asthma exacerbation Qualifiers: Asthma severity: moderate Asthma persistence: unspecified Qualified Code( s): J45.901 - Unspecified asthma with (acute) exacerbation Is this a current diagnosis for this admission?: Yes Plan: Continues to improve with bronchodilators. She is also on a tapering steroid plan, still on IV methylprednisolone. Will continue with antibiotics. She is overall improved. (2) DVT prophylaxis Is this a current diagnosis for this admission?: Yes Plan: Continue Lovenox 40 mg subcu daily, no complications (3) Hypoxemia Is this a current diagnosis for this admission?: Yes Plan: Continues with acute hypoxemic respiratory failure still satting in the low 90s on 4-5 L of nasal cannula oxygen. (4) Tobacco abuse Is this a current diagnosis for this admission?: Yes Plan: Did not discuss today. (5) Intertriginous dermatitis associated with moisture Is this a current diagnosis for this admission?: Yes Plan: Continue nystatin. (6) Morbid obesity Is this a current diagnosis for this admission?: Yes Plan: Patient and I discussed the importance of weight loss today. She states that her brother weighed 500 pounds 2 years ago and changed his diet and started exercising and now weighs 180 pounds. She was very motivated by that and is changed her diet to 1200 michael a day, she will start exercising when she is able. She could not walk well a few months ago but now that she is dropped from 460- 410 she is able to walk on her own. I congratulated her. - Time Time Spent with patient: 15-24 minutes - Inpatient Certification Based on my medical assessment, after consideration of the patient's comorbidities, presenting symptoms, or acuity I expect that the services needed warrant INPATIENT care.: Yes I certify that my determination is in accordance with my understanding of Medicare's requirements for reasonable and necessary INPATIENT services [42 CFR 412.3e].: Yes Medical Necessity: Need Close Monitoring Due to Risk of Patient Decompensation, Need for Nebulizer Therapy and Monitoring of Response
[2017-08-26] MEDS ORDERED: DEXTROSE 40% GEL 15 GM TUBE PO PRN ×2 (16:58)
[2017-08-26] MEDS ORDERED: GLUCAGON,HUMAN RECOMB 1 MG INJ IM PRN (16:58)
[2017-08-26] MEDS ORDERED: DEXTROSE 50%-WATER 25 GM/50 ML DISP.SYRIN IV PRN ×2 (16:58)
[2017-08-26] MEDS ORDERED: INSULIN LISPRO 100 UNIT/ML 3 ML VIAL SUBCUT PRN (16:58)
[2017-08-26] MEDS ORDERED: SODIUM POLYSTYRENE SULFONATE 15 GM/60 ML PO ONE ×2 (18:00→23:38)
[2017-08-27 00:28] LABS: ANION GAP 11 (5-19); BLOOD UREA NITROGEN 22 mg/dL (7-20); CALCIUM 8.6 mg/dL (8.4-10.2); CARBON DIOXIDE 32 mmol/L (22-30); CHLORIDE 98 mmol/L (98-107); GLUCOSE 110 mg/dL (75-110); SODIUM 140.6 mmol/L (137-145)
[2017-08-27] MEDS: ALBUTEROL SULFATE 0.083% NEB 2.5 MG/3 ML AMPUL NEB PRN (01:34)
[2017-08-27] MEDS: LANSOPRAZOLE 30 MG TAB.RAP.DR PO SCH (06:29)
[2017-08-27] MEDS: IPRATROPIUM/ALBUTEROL 0.5-2.5 MG/3 ML AMPUL NEB SCH ×4 (08:28→21:08)
[2017-08-27 08:32] LABS: ANION GAP 8 (5-19); BLOOD UREA NITROGEN 21 mg/dL (7-20); CALCIUM 8.2 mg/dL (8.4-10.2); CARBON DIOXIDE 37 mmol/L (22-30); CHLORIDE 97 mmol/L (98-107); GLUCOSE 134 mg/dL (75-110); POTASSIUM 4.8 mmol/L (3.6-5.0); SODIUM 142.3 mmol/L (137-145)
[2017-08-27] MEDS: GUAIFENESIN 600 MG TABLET.SA PO SCH ×2 (09:25→21:06)
[2017-08-27] MEDS: METHYLPREDNISOLONE INJ 125 MG/2 ML SDV IV SCH (09:26)
[2017-08-27] MEDS: CEFTRIAXONE SODIUM 1,000 MG in DEXTROSE 5%-WATER 50 ML IV SCH (09:28)
[2017-08-27] MEDS: ENOXAPARIN SODIUM INJ 40 MG/0.4 ML DISP.SYRIN SUBCUT SCH (09:29)
[2017-08-27] MEDS: AZITHROMYCIN 500 MG in DEXTROSE 5%-WATER 250 ML IV SCH (11:06)
[2017-08-27] MEDS: NYSTATIN CREAM 15 GM TP SCH ×2 (11:10→17:25)
[2017-08-27] MEDS ORDERED: ONDANSETRON HCL INJ/PF 4 MG/2 ML SDV IV PRN (15:30)
--- NOTE | 2017-08-27 17:42 | PDOC PROGRESS REPORT ---
Subjective Progress Note for:: 08/27/17 Subjective:: Breathing improving. Still with some wheezing with attempted activity, but feels she is improving. No chest pain or palpitations, no nausea vomiting, no fever or chills. Reason For Visit: ACUTE ASTHMA EXACERBATION Physical Exam Vital Signs: Temp Pulse Resp BP Pulse Ox 98.2 F 92 18 145/80 H 93 08/27/17 11:56 08/27/17 16:21 08/27/17 16:21 08/27/17 11:56 08/27/17 16:21 Intake & Output 08/26/17 08/27/17 08/28/17 06:59 06:59 06:59 Intake Total 1599 1787 473 Output Total 400 2 Balance 1199 1787 471 Weight 190.6 kg 195.5 kg General appearance: PRESENT: no acute distress, cooperative, morbidly obese Head exam: PRESENT: atraumatic, normocephalic Eye exam: PRESENT: EOMI. ABSENT: conjunctival injection, scleral icterus Mouth exam: PRESENT: moist, neck supple, tongue midline Respiratory exam: PRESENT: decreased breath sounds, unlabored, few bilateral wheezes. ABSENT: rales, rhonchi Cardiovascular exam: PRESENT: RRR. ABSENT: systolic murmur Pulses: PRESENT: normal radial pulses GI/Abdominal exam: PRESENT: normal bowel sounds, soft. ABSENT: distended, firm , guarding, tenderness Rectal exam: PRESENT: deferred Extremities exam: PRESENT: pedal edema Neurological exam: PRESENT: alert, awake, oriented to person, oriented to place , oriented to situation, CN II-XII grossly intact Psychiatric exam: PRESENT: appropriate affect. ABSENT: anxious Skin exam: PRESENT: intact, warm, other - Moist and skin folds Results Laboratory Results: 08/26/17 06:54 08/27/17 07:15 08/27/17 08/27/17 00:00 07:15 Sodium 140.6 142.3 Potassium 5.0 4.8 Chloride 98 97 L Carbon Dioxide 32 H 37 H Anion Gap 11 8 BUN 22 H 21 H Creatinine 0.80 0.73 Est GFR ( Amer) > 60 > 60 Est GFR (Non-Af Amer) > 60 > 60 Glucose 110 134 H Calcium 8.6 8.2 L 08/24/17 20:35 Sputum Gram Stain - Final 08/24/17 20:35 Sputum Sputum Culture - Final NORMAL TAMERA Impressions: Chest X-Ray 08/23/17 18:03 IMPRESSION: NO ACUTE RADIOGRAPHIC FINDING IN THE CHEST. Assessment & Plan - Plan Summary Plan Summary: (1) Asthma exacerbation Qualifiers: Asthma severity: moderate Asthma persistence: unspecified Qualified Code( s): J45.901 - Unspecified asthma with (acute) exacerbation Is this a current diagnosis for this admission?: Yes Plan: Continues to improve with bronchodilators and steroids. She is also on a tapering steroid plan, still on IV methylprednisolone currently 60 mg every 12. Given that she still has some wheezing, work no Solu-Medrol for now but decrease to 40 mg every 12. Will continue with antibiotics, although suspect leukocytosis mainly attributable to steroids. (2) DVT prophylaxis Is this a current diagnosis for this admission?: Yes Plan: Continue Lovenox 40 mg subcu daily, no complications (3) Hypoxemia Is this a current diagnosis for this admission?: Yes Plan: Continues with acute hypoxemic respiratory failure still satting in the low 90s on 4-5 L of nasal cannula oxygen. (4) Tobacco abuse Is this a current diagnosis for this admission?: Yes Plan: Smoking cessation counseling done. (5) Intertriginous dermatitis associated with moisture Is this a current diagnosis for this admission?: Yes Plan: Continue nystatin. (6) Morbid obesity Is this a current diagnosis for this admission?: Yes Plan: Patient states she is on weight loss regimen and it's helping. She plans to continue this.
[2017-08-27] MEDS ORDERED: METHYLPREDNISOLONE INJ 125 MG/2 ML SDV IV SCH (17:45)
[2017-08-27] MEDS: METHYLPREDNISOLONE INJ 40 MG/1 ML SDV IV SCH (21:06)
[2017-08-28] MEDS: LANSOPRAZOLE 30 MG TAB.RAP.DR PO SCH (05:44)
[2017-08-28 06:52] LABS: ABSOLUTE BASOPHILS # (AUTO) 0.1 10^3/uL (0.0-0.2); ABSOLUTE LYMPHOCYTES (AUTO) 1.9 10^3/uL (0.5-4.7); ABSOLUTE MONOCYTES (AUTO) 0.5 10^3/uL (0.1-1.4); ABSOLUTE NEUT (AUTO) 11.6 10^3/uL (1.7-8.2); BASOPHILS % (AUTO) 0.5 % (0-2); HEMATOCRIT 37.6 % (36.0-47.0); HEMOGLOBIN 11.6 g/dL (12.0-15.5); LYMPHOCYTES % (AUTO) 13.6 % (13-45); MEAN CORPUSCULAR HEMOGLOBIN 21.7 pg (27.0-33.4); MEAN CORPUSCULAR HGB CONC 30.8 g/dL (32.0-36.0); MEAN CORPUSCULAR VOLUME 70 fl (80-97); MONOCYTES % (AUTO) 3.7 % (3-13); PLATELET COUNT 424 10^3/uL (150-450); RED BLOOD COUNT 5.34 10^6/uL (3.72-5.28); RED CELL DISTRIBUTION WIDTH 19.3 % (11.5-14.0); SEGMENTED NEUTROPHILS % (AUTO) 82.2 % (42-78); TOTAL CELLS COUNTED % (AUTO) 100 %; WHITE BLOOD COUNT 14.1 10^3/uL (4.0-10.5)
[2017-08-28 07:08] LABS: ANION GAP 9 (5-19); BLOOD UREA NITROGEN 22 mg/dL (7-20); CALCIUM 8.8 mg/dL (8.4-10.2); CARBON DIOXIDE 36 mmol/L (22-30); CHLORIDE 96 mmol/L (98-107); GLUCOSE 114 mg/dL (75-110); POTASSIUM 4.9 mmol/L (3.6-5.0); SODIUM 141.4 mmol/L (137-145)
[2017-08-28] MEDS: IPRATROPIUM/ALBUTEROL 0.5-2.5 MG/3 ML AMPUL NEB SCH ×4 (08:55→20:32)
[2017-08-28] MEDS: GUAIFENESIN 600 MG TABLET.SA PO SCH ×2 (09:19→21:32)
[2017-08-28] MEDS: METHYLPREDNISOLONE INJ 40 MG/1 ML SDV IV SCH ×2 (09:19→21:32)
[2017-08-28] MEDS: CEFTRIAXONE SODIUM 1,000 MG in DEXTROSE 5%-WATER 50 ML IV SCH (09:20)
[2017-08-28] MEDS: ENOXAPARIN SODIUM INJ 40 MG/0.4 ML DISP.SYRIN SUBCUT SCH (09:20)
[2017-08-28] MEDS: NYSTATIN CREAM 15 GM TP SCH ×2 (09:39→17:28)
[2017-08-28] MEDS: AZITHROMYCIN 500 MG in DEXTROSE 5%-WATER 250 ML IV SCH (10:32)
[2017-08-28] MEDS: ACETAMINOPHEN 325 MG TABLET PO PRN (10:32)
--- NOTE | 2017-08-28 16:07 | PDOC PROGRESS REPORT ---
Subjective Progress Note for:: 08/28/17 Subjective:: No adverse events overnight. No new complaints. She says she is feeling a little bit better today. She is wondering if she is going to have to go home on oxygen. She said she still gets short of breath with exertion. She says she plans to quit smoking after she leaves the hospital. Reason For Visit: ACUTE ASTHMA EXACERBATION Physical Exam Vital Signs: Temp Pulse Resp BP Pulse Ox 98.0 F 77 16 144/68 H 90 L 08/28/17 07:42 08/28/17 14:00 08/28/17 11:43 08/28/17 07:42 08/28/17 11:43 Intake & Output 08/27/17 08/28/17 08/29/17 06:59 06:59 06:59 Intake Total 1787 2194 695 Output Total 2 Balance 1787 2192 695 Weight 195.5 kg 193.7 kg General appearance: PRESENT: no acute distress, disheveled, morbidly obese Respiratory exam: PRESENT: prolonged expiratory phas, unlabored, wheezes. ABSENT: accessory muscle use, rales, rhonchi Cardiovascular exam: PRESENT: RRR. ABSENT: systolic murmur GI/Abdominal exam: PRESENT: normal bowel sounds, soft. ABSENT: guarding, rebound, tenderness Extremities exam: ABSENT: pedal edema Musculoskeletal exam: PRESENT: ambulatory, normal inspection. ABSENT: deformity Neurological exam: PRESENT: alert, awake, oriented to person, oriented to place , oriented to time Psychiatric exam: PRESENT: appropriate affect, normal mood Results Laboratory Results: 08/28/17 06:29 08/28/17 06:29 08/28/17 08/28/17 06:29 06:29 WBC 14.1 H RBC 5.34 H Hgb 11.6 L Hct 37.6 MCV 70 L MCH 21.7 L MCHC 30.8 L RDW 19.3 H Plt Count 424 Seg Neutrophils % 82.2 H Lymphocytes % 13.6 Monocytes % 3.7 Eosinophils % 0.0 Basophils % 0.5 Absolute Neutrophils 11.6 H Absolute Lymphocytes 1.9 Absolute Monocytes 0.5 Absolute Eosinophils 0.0 Absolute Basophils 0.1 Sodium 141.4 Potassium 4.9 Chloride 96 L Carbon Dioxide 36 H Anion Gap 9 BUN 22 H Creatinine 0.71 Est GFR ( Amer) > 60 Est GFR (Non-Af Amer) > 60 Glucose 114 H Calcium 8.8 Impressions: Chest X-Ray 08/23/17 18:03 IMPRESSION: NO ACUTE RADIOGRAPHIC FINDING IN THE CHEST. Assessment & Plan - Diagnosis (1) Asthma exacerbation Qualifiers: Asthma severity: moderate Asthma persistence: unspecified Qualified Code( s): J45.901 - Unspecified asthma with (acute) exacerbation Is this a current diagnosis for this admission?: Yes Plan: She was strongly encouraged to quit smoking. I am going to keep her steroids were they are today and hopefully be able to de-escalate them tomorrow. (2) Morbid obesity Is this a current diagnosis for this admission?: Yes Plan: Encourage lifestyle modification (3) Tobacco abuse Is this a current diagnosis for this admission?: Yes Plan: Strongly encourage smoking cessation - Time Time Spent with patient: 15-24 minutes
[2017-08-29] MEDS: ALBUTEROL SULFATE 0.083% NEB 2.5 MG/3 ML AMPUL NEB PRN (00:23)
[2017-08-29] MEDS: LANSOPRAZOLE 30 MG TAB.RAP.DR PO SCH (06:26)
[2017-08-29] MEDS: IPRATROPIUM/ALBUTEROL 0.5-2.5 MG/3 ML AMPUL NEB SCH ×4 (07:54→20:05)
[2017-08-29] MEDS: ACETAMINOPHEN 325 MG TABLET PO PRN (09:13)
[2017-08-29] MEDS: ENOXAPARIN SODIUM INJ 40 MG/0.4 ML DISP.SYRIN SUBCUT SCH (09:13)
[2017-08-29] MEDS: GUAIFENESIN 600 MG TABLET.SA PO SCH ×2 (09:13→22:12)
[2017-08-29] MEDS: METHYLPREDNISOLONE INJ 40 MG/1 ML SDV IV SCH ×2 (09:13→22:12)
[2017-08-29] MEDS: NYSTATIN CREAM 15 GM TP SCH ×2 (09:24→18:39)
[2017-08-29] MEDS: CEFTRIAXONE SODIUM 1,000 MG in DEXTROSE 5%-WATER 50 ML IV SCH (09:41)
[2017-08-29] MEDS: AZITHROMYCIN 500 MG in DEXTROSE 5%-WATER 250 ML IV SCH (11:54)
--- NOTE | 2017-08-29 17:45 | PDOC PROGRESS REPORT ---
Subjective Progress Note for:: 08/29/17 Subjective:: No adverse events overnight. No new complaints. Vital signs been stable. Her breathing feels like it has improved. She still gets dyspneic whenever she exerts herself, however. She does feel like she is better able to take a deep breath than she was whenever she first came in. Reason For Visit: ACUTE ASTHMA EXACERBATION Physical Exam Vital Signs: Temp Pulse Resp BP Pulse Ox 98.2 F 83 20 142/79 H 94 08/29/17 11:23 08/29/17 16:09 08/29/17 16:09 08/29/17 11:23 08/29/17 16:09 Intake & Output 08/28/17 08/29/17 08/30/17 06:59 06:59 06:59 Intake Total 2194 2504 300 Output Total 2 250 Balance 2192 2254 300 Weight 193.7 kg 193.1 kg General appearance: PRESENT: no acute distress, cooperative, disheveled, morbidly obese Respiratory exam: PRESENT: decreased breath sounds, unlabored, wheezes - Faint low pitched end expiratory wheezes in the bases. ABSENT: accessory muscle use, rales, rhonchi, tachypnea Cardiovascular exam: PRESENT: RRR. ABSENT: systolic murmur GI/Abdominal exam: PRESENT: normal bowel sounds, soft. ABSENT: guarding, rebound, tenderness Extremities exam: ABSENT: pedal edema Musculoskeletal exam: PRESENT: normal inspection. ABSENT: deformity Neurological exam: PRESENT: alert, awake, oriented to person, oriented to place , oriented to time Skin exam: PRESENT: dry, warm Results Laboratory Results: 08/28/17 06:29 08/28/17 06:29 08/23/17 21:36 Blood Blood Culture - Final NO GROWTH IN 5 DAYS Impressions: Chest X-Ray 08/23/17 18:03 IMPRESSION: NO ACUTE RADIOGRAPHIC FINDING IN THE CHEST. Assessment & Plan - Diagnosis (1) Asthma exacerbation Qualifiers: Asthma severity: moderate Asthma persistence: unspecified Qualified Code( s): J45.901 - Unspecified asthma with (acute) exacerbation Is this a current diagnosis for this admission?: Yes Plan: We will de-escalate her steroids today. Anticipate being able to put her on prednisone and sending her home tomorrow. We will do a 6 minute walk test before she is discharged to see if she needs oxygen at home. (2) Morbid obesity Is this a current diagnosis for this admission?: Yes Plan: Encourage lifestyle modification (3) Tobacco abuse Is this a current diagnosis for this admission?: Yes Plan: Strongly encourage smoking cessation - Time Time Spent with patient: 15-24 minutes
[2017-08-30] MEDS: LANSOPRAZOLE 30 MG TAB.RAP.DR PO SCH (06:12)
[2017-08-30] MEDS: IPRATROPIUM/ALBUTEROL 0.5-2.5 MG/3 ML AMPUL NEB SCH ×3 (07:41→15:52)
[2017-08-30] MEDS: ENOXAPARIN SODIUM INJ 40 MG/0.4 ML DISP.SYRIN SUBCUT SCH (09:15)
[2017-08-30] MEDS: GUAIFENESIN 600 MG TABLET.SA PO SCH (09:16)
[2017-08-30] MEDS: CEFTRIAXONE SODIUM 1,000 MG in DEXTROSE 5%-WATER 50 ML IV SCH ×2 (09:16→10:39)
[2017-08-30] MEDS: NYSTATIN CREAM 15 GM TP SCH (09:17)
[2017-08-30] MEDS: METHYLPREDNISOLONE INJ 40 MG/1 ML SDV IV SCH ×2 (09:17→10:39)
--- NOTE | 2017-08-30 10:36 | Progress Note ---
Provider Note Provider Note: ID Consult Note Asked to review patient's chart by Pharmacy. Pt not seen or examined. Reviewed VS, imaging reports, CXR images, provider notes, lab results. Ms. Rojas is a morbidly obese 42 year old woman who is a smoker and has asthma. She presented to the ED on 08/23/17 with c/o 2 days onset worsening SOB with dry cough and no fever or chills subjectively, associated with mild HERNANDEZ, rhinorrhea, sore throat. She was found to have acute hypoxemia related to asthma exacerbation with low O2 sats on room air, diffuse expiratory wheezes on exam, CXR showing no focal consolidation, no fever objectively. Labs notable for WBC 11.8. BCx negative x 5 days. Sputum grew normal basim. Levaquin was given on 08/23, followed by azithromycin and Rocephin from 08/24 to present due to the possibility that she might have COPD and COPD exacerbation given her smoking history. Pt was given duonebs and IV solumedrol. She has improved clinically, although still has some ESTEBAN, and supplemental O2 has been able to be weaned down from 3-5 L to 1.5-2 L. Impression Acute asthma exacerbation SIRS, noninfectious (leukocytosis reactive or steroid induced, tachypnea) Pt has improved. She has no pneumonia. Ms. Rojas is on day 8 today of antibiotic therapy (Levaquin -> Rocephin/azithromycin). Patient's prodrome or associated symptoms were suggestive of viral URI (mild HERNANDEZ , rhinorrhea, dry cough, sore throat) as trigger of asthma exacerbation. Guidelines generally recommend against empiric antibiotic therapy for the treatment of an asthma exacerbation as most are triggered by other etiologies besides bacterial infection, such as viruses. For suspected COPD exacerbation, given smoking hx, she was given empiric azithromycin and Rocephin. For severe COPD exacerbation requiring hospitalization antibiotics are usually started, as 1/3 to 1/2 of the time a bacterial trigger is implicated with/without viral copathogen, but the duration of therapy is generally in the range of 3-5, possibly up to 7 days, with no clear support in the literature that longer durations of antibiotics are beneficial. Recommendations Recommend discontinuing Rocephin/azithromycin and continuing to ensure that pt' s home asthma regimen and follow up care is optimized. Jonathon Lombardo MD [facility] Infectious Diseases pager [phone]
[2017-08-30] MEDS: AZITHROMYCIN 500 MG in DEXTROSE 5%-WATER 250 ML IV SCH (10:37)
[2017-08-30 16:14] VITALS: BP 130/61
--- NOTE | 2017-08-30 17:28 | PDOC DISCHARGE SUMMARY ---
General - Admit/Disc Date/PCP Admission Date/Primary Care Provider: 08/23/17 20:28 CLAUDIA DASH MD Discharge Date: 08/30/17 - Discharge Diagnosis (1) Asthma exacerbation Is this a current diagnosis for this admission?: Yes Summary: Responded well to steroids and bronchodilators. She will finish up some prednisone at home. (2) Morbid obesity Is this a current diagnosis for this admission?: Yes Summary: Encourage lifestyle modification. (3) Tobacco abuse Is this a current diagnosis for this admission?: Yes Summary: Strongly encourage cessation, especially since she is going to be on oxygen. (4) Acute hypoxemic respiratory failure Is this a current diagnosis for this admission?: Yes Summary: Her pulse oximetry on room air during her 6 minute walk was 85%. We got her qualified for oxygen and got the oxygen delivered. - Additional Information Discharge Diet: Regular Discharge Activity: Activity As Tolerated, Walk Frequently Prescriptions: Nystatin [Mycostatin Cream 15 gm] 1 applic TP BID #1 tube Prednisone 5 mg PO ASDIR #21 tab.ds.pk Home Medications: Albuterol Sulfate [Ventolin Hfa] 2 puff IH Q4HP PRN 08/23/17 Guaifenesin [Mucinex Sr 600 mg Tablet.sa] 600 mg PO Q12 tablet.sa 08/30/17 Nystatin [Mycostatin Cream 15 gm] 1 applic TP BID #1 tube 08/30/17 Prednisone 5 mg PO ASDIR #21 tab.ds.pk 08/30/17 History of Present Illness History of Present Illness: DONTE DAMON is a 42 year old female with history of multiple medical problems develop her menstrual blood present in the emergency room with acute onset of dyspnea with associated dry cough and wheezing which have been significantly worsening over the last couple of days with tactile fever and chills. She admits to nausea without vomiting. She has been having mild headache and lightheadedness as well as rhinorrhea nasal congestion and sore throat. No abdominal pain or dysuria oliguria hematuria or flank pain. When she came to the ER EKG showed normal sinus rhythm with a rate of 92. She was desaturating We will pulse oximetry of 88% on room air. On 3 L of O2 by nasal cannula she was up to 92%. She was given 3 DuoNeb's as well as 2 g of IV magnesium sulfate as well as IV Levaquin and was still feeling tight. Labs revealed mild leukocytosis are otherwise unremarkable. The patient will be admitted to a medically monitored bed for further evaluation and management. Hospital Course Hospital Course: She was put on steroids and bronchodilators. She responded well to this. She will finish up a steroid taper at home. She had initially been given some antibiotics with areas of been discontinued. She has some intertrigonal candidiasis was treated with nystatin. We did a 6 minute walk test on her and that qualified her for home oxygen. Her labs and examination were reassuring and she was discharged today in good condition. Physical Exam Vital Signs: Temp Pulse Resp BP Pulse Ox 98.2 F 87 18 138/61 H 96 08/30/17 15:48 08/30/17 15:52 08/30/17 15:52 08/30/17 15:48 08/30/17 15:52 Intake & Output 08/29/17 08/30/17 08/31/17 06:59 06:59 06:59 Intake Total 2504 1300 Output Total 250 Balance 2254 1300 Weight 193.1 kg 192.2 kg General appearance: PRESENT: no acute distress, cooperative, disheveled, morbidly obese Respiratory exam: PRESENT: decreased breath sounds, unlabored. ABSENT: accessory muscle use, rales, rhonchi, tachypnea, wheezes. Cardiovascular exam: PRESENT: RRR. ABSENT: systolic murmur GI/Abdominal exam: PRESENT: normal bowel sounds, soft. ABSENT: guarding, rebound, tenderness Extremities exam: ABSENT: pedal edema Musculoskeletal exam: PRESENT: normal inspection. ABSENT: deformity Neurological exam: PRESENT: alert, awake, oriented to person, oriented to place , oriented to time Skin exam: PRESENT: dry, warm Results Laboratory Results: 08/28/17 06:29 08/28/17 06:29 Impressions: Chest X-Ray 08/23/17 18:03 IMPRESSION: NO ACUTE RADIOGRAPHIC FINDING IN THE CHEST. Qualifiers - * PATIENT BEING DISCHARGED WITH ANY OF THE FOLLOWING DIAGNOSIS: No
== END 2017-08-30 18:15 | disposition home or self-care (01) | DRG 202 ==
LOC: ER 17:59 → EH 20:28 → 3S 21:58 → 5 08-29 13:27
PROVIDERS: ADMIT Family Medicine; ATTEND Family Medicine
PROC: 3E0F73Z Introduction of Anti-inflammatory into Respiratory Tract, Via Natural or Artificial Opening (ICD-10-PCS; principal; 2017-08-24)
DX: J45.41 Moderate persistent asthma with (acute) exacerbation (principal); J96.01 Acute respiratory failure with hypoxia; Z68.45 Body mass index [BMI] 70 or greater, adult; E66.01 Morbid (severe) obesity due to excess calories; I10 Essential (primary) hypertension; J44.9 Chronic obstructive pulmonary disease, unspecified; M19.90 Unspecified osteoarthritis, unspecified site; F17.210 Nicotine dependence, cigarettes, uncomplicated; L30.4 Erythema intertrigo; E87.5 Hyperkalemia; Z88.6 Allergy status to analgesic agent; Z88.0 Allergy status to penicillin; Z82.3 Family history of stroke
CPT/HCPCS: 36415; 71045; 80048; 80053; 81001; 82550; 82553; 82803; 82962; 83036; 83880; 84484; 85025; 87040; 87070; 87205; 93005; 93010; 94640; 94761; 96374; 99285; J0456; J0696; J1650; J1956; J2920; J2930; J3475; J3490; J7030; J7060; J7620